=== PATIENT | female | born 1980 | race Caucasian/White ===

== ENCOUNTER 2018-08-28 18:02 | Emergency (ER) | payer MEDICAID ==
[~2018-08-28] VITALS: Ht 170.2 cm; Wt 122.5 kg
[2018-08-28 18:18] VITALS: BP 155/99
== END 2018-08-29 03:06 | disposition home or self-care (01) ==
LOC: ER 18:02
DX: M62.838 Other muscle spasm (principal); I10 Essential (primary) hypertension; E07.9 Disorder of thyroid, unspecified
CPT/HCPCS: 72040; 73030